=== PATIENT | male | born 1980 | race Two or more races ===

== ENCOUNTER 2023-01-07 19:00 | Emergency (ER) | payer OTHER ==
[~2023-01-07] VITALS: Ht 177.8 cm; Wt 96.3 kg
[2023-01-07 19:05] VITALS: BP 138/95
[2023-01-07] MEDS ORDERED: KETOROLAC TROMETH 60MG/2ML VIAL IM ONE (21:00)
[2023-01-07] MEDS ORDERED: IBUP800T27 PO (22:07)
== END 2023-01-07 22:30 | disposition home or self-care (01) ==
LOC: ER 19:00
DX: S93.402A Sprain of unspecified ligament of left ankle, initial encounter (principal); F17.210 Nicotine dependence, cigarettes, uncomplicated; Z98.890 Other specified postprocedural states; W01.0XXA Fall on same level from slipping, tripping and stumbling without subsequent striking against object, initial encounter; Y93.89 Activity, other specified; Y92.89 Other specified places as the place of occurrence of the external cause; Y99.8 Other external cause status; Z88.6 Allergy status to analgesic agent
CPT/HCPCS: 73610; 96372; 99283; J1885